=== PATIENT | male | born 1995 | race Caucasian/White ===

== ENCOUNTER 2020-11-07 17:39 | Emergency (ER) | payer BC ==
[2020-11-07] MEDS ORDERED: Sodium Chloride 0.9% 1000 ML 1,000 ML IV STA (17:56)
[2020-11-07 18:16] LABS: Absolute Neutrophil Ct (ANC) 4.93 (1.4-6.9); BASOPHIL % 0.4 % (0.0-0.4); Basophil (Absolute #) 0.03 (0-0.4); Eosinophil % 2.3 % (0.00-5.0); Eosinophil (Absolute #) 0.19 (0-0.5); Hematocrit 44.6 % (42-50); Hemoglobin 14.7 gm/dl (12.5-18.0); Lymphocyte (Absolute #) 2.53 (1.0-4.6); Lymphocytes % 30.7 % (24.0-44.0); Mean Cell Volume 81.4 fl (78-100); Mean Corpuscular Hemoglobin 26.8 pg (26-32); Mean Platelet Volume 9.4 fl (7.5-11.0); Monocyte (Absolute #) 0.56 (0.0-1.3); Monocytes % 6.8 % (0.0-12.0); Neutrophil % 59.8 % (36.0-66.0); Platelet Count 284 K/mm3 (150-450); Red Blood Count 5.48 M/mm3 (4.1-5.6); Red Cell Distribution Width 13.6 % (11.5-14.0); White Blood Count 8.2 K/mm3 (4.0-10.5)
[2020-11-07] MEDS ORDERED: Sodium Chloride 0.9% 1000 ML 1,000 ML ONE (18:20)
[2020-11-07 18:37] LABS: ALBUMIN 4.5 g/dL (3.5-5.0); ALKALINE PHOSPHATASE 119 U/L (38-126); ANION GAP 13.3 MEQ/L (5-15); BLOOD UREA NITROGEN 19 mg/dL (9-20); CHLORIDE 104 mmol/L (98-107); Calcium 9.8 mg/dL (8.4-10.2); Carbon Dioxide 27 mmol/L (22-30); Creatinine 1 1.04 mg/dL (0.66-1.25); EST GLOMERULAR FILTRATION RATE > 60.0 ML/MIN; Glucose 90 mg/dL (74-106); Potassium 4.3 mmol/L (3.5-5.1); SGOT/AST 42 U/L (17-59); SGPT/ALT 41 U/L (0-50); SODIUM 139 mmol/L (137-145); Total Protein 7.3 g/dL (6.3-8.2)
[2020-11-07 19:44] VITALS: O2SAT 97
--- NOTE | 2020-11-07 20:00 | ERPHSYRPT ---
- History of Present Illness Time Seen by Provider: 11/07/20 17:50 Source: patient Exam Limitations: no limitations Patient Subjective Stated Complaint: sent from Dr Egan office for elevated D dimer, need for CTA per PCP and chest pain since Wednesday Triage Nursing Assessment: pt to ED sent from Dr Egan office for elevated D dimer, need for CTA per PCP and chest pain since Wednesday. rates 2/10 pain now in center of chest. seen in [facility] ED Wednesday for same and dx with musclular pain. heart sounds clear. lungs clear and equal bilat. A&Ox3. ambualtory with no assist Physician History: Patient is a 25-year-old male presents to our ED as a referral from his primary care doctor for a CTA of his chest. Patient had a positive D-dimer on outpatient laboratory work-up. Patient sent here to rule out PE. Patient's chest pain started on Wednesday 4 days ago. Pain described as an ache, sudden onset intermittent muscle spasm sensation that is localized to his left upper chest. RN documents pain was substernal in the center of his chest however patient points to his left upper chest instead. No trauma. No fever. No nausea vomiting or diaphoresis. Pain rated 2 out of 10. Patient states he went to [facility] 2 days ago for the same. Patient was diagnosed with musculoskeletal chest pain. Patient voices no other complaints concerns at this time. Timing/Duration: day(s) (3 days ago.) Severity: mild Modifying Factors: Improves With: nothing Associated Symptoms: denies symptoms Allergies/Adverse Reactions: No Known Drug Allergies Allergy (Unverified 11/07/20 18:02) Home Medications: Buspirone HCl [Buspar] 10 mg PO DAILY 11/07/20 [History] Paroxetine HCl 20 mg [Paxil 20 MG] 20 mg PO DAILY 11/07/20 [History] Hx Tetanus, Diphtheria Vaccination/Date Given: Yes Hx Influenza Vaccination/Date Given: Yes Hx Pneumococcal Vaccination/Date Given: No Immunizations Up to Date: Yes Travel Risk - International Travel Have you traveled outside of the country in past 3 weeks: No - Coronavirus Screening Are you exhibiting any of the following symptoms?: No Close contact with a COVID-19 positive Pt in past 14-21 Days: No - Vaccine Status Have you recieved a Covid-19 vaccination: No - Review of Systems Constitutional: No Symptoms, No Fever, No Chills Eyes: No Symptoms Ears, Nose, & Throat: No Symptoms Respiratory: No Symptoms, No Cough, No Dyspnea Cardiac: No Symptoms, No Chest Pain, No Edema, No Syncope Abdominal/Gastrointestinal: No Symptoms, No Abdominal Pain, No Nausea, No Vomiting, No Diarrhea Genitourinary Symptoms: No Symptoms, No Dysuria Musculoskeletal: No Symptoms, No Back Pain, No Neck Pain Skin: No Symptoms, No Rash Neurological: No Symptoms, No Dizziness, No Focal Weakness, No Sensory Changes Psychological: No Symptoms Endocrine: No Symptoms Hematologic/Lymphatic: No Symptoms Immunological/Allergic: No Symptoms All Other Systems: Reviewed and Negative - Past Medical History Pertinent Past Medical History: Yes Psycho-Social History: Anxiety - Past Surgical History Past Surgical History: Yes Musculoskeletal: Orthopedic Surgery Other Surgical History: R wrist - Social History Smoking Status: Former smoker Exposure to second hand smoke: No Drug Use: none Patient Lives Alone: No - Nursing Vital Signs Nursing Vital Signs: Initial Vital Signs Pulse Rate 85 11/07/20 17:40 Respiratory Rate 25 H 11/07/20 17:40 Blood Pressure 156/95 11/07/20 17:40 O2 Sat by Pulse Oximetry 98 11/07/20 17:40 Pain Scale Pain Intensity 2 - Physical Exam General Appearance: no apparent distress, alert Eye Exam: PERRL/EOMI, eyes nml inspection Ears, Nose, Throat Exam: normal ENT inspection, TMs normal, pharynx normal, moist mucous membranes Neck Exam: normal inspection, non-tender, supple, full range of motion Respiratory Exam: normal breath sounds, lungs clear, No respiratory distress Cardiovascular Exam: regular rate/rhythm, normal heart sounds, normal peripheral pulses Gastrointestinal/Abdomen Exam: soft, normal bowel sounds, No tenderness, No mass Back Exam: normal inspection, normal range of motion, No CVA tenderness, No vertebral tenderness Extremity Exam: normal inspection, normal range of motion, pelvis stable Neurologic Exam: alert, oriented x 3, cooperative, normal mood/affect, nml cerebellar function, nml station & gait, sensation nml, No motor deficits Skin Exam: normal color, warm, dry, No rash Lymphatic Exam: No adenopathy SpO2 Interpretation: normal SpO2: 97 O2 Delivery: Room Air - Course Nursing assessment & vital signs reviewed: Yes EKG Interpreted by Me: RATE (85), Sinus Rhythm, NORMAL AXIS, NORMAL INTERVALS Ordered Tests: Active Orders 24 hr Category Date Time Status Animal Anatomy Teacher STAT Care 11/07/20 17:56 Active EKG-ER Only STAT Care 11/07/20 17:56 Active IV Insertion STAT Care 11/07/20 17:56 Active Pulse Oximetry (ED) STAT Care 11/07/20 17:56 Active CHEST WITH CONTRAST [CT] Stat Exams 11/07/20 17:56 Taken CBC W DIFF Stat Lab 11/07/20 18:05 Completed CMP Stat Lab 11/07/20 18:05 Completed TROPONIN Q3H Lab 11/07/20 18:05 Completed TROPONIN Q3H Lab 11/07/20 21:00 Ordered TROPONIN Q3H Lab 11/08/20 00:00 Ordered TROPONIN Q3H Lab 11/08/20 03:00 Ordered TROPONIN Q3H Lab 11/08/20 06:00 Ordered Medication Summary Discontinued Medications Generic Name Dose Route Start Last Admin Trade Name Freq PRN Reason Stop Dose Admin Sodium Chloride 1,000 mls @ 999 mls/hr 11/07/20 17:56 11/07/20 18:22 Sodium Chloride 0.9% 1000 Ml IV 11/07/20 18:56 999 mls/hr .Q1H1M STA Administration Sodium Chloride Confirm 11/07/20 18:20 Sodium Chloride 0.9% 1000 Ml Administered 11/07/20 18:21 Dose 1,000 mls @ ud .ROUTE .STK-MED ONE Lab/Rad Data: Laboratory Result Diagrams 11/07/20 18:05 11/07/20 18:05 Laboratory Results 11/07/20 11/07/20 11/07/20 Range/Units 18:05 18:05 18:05 WBC 8.2 (4.0-10.5) K/mm3 RBC 5.48 (4.1-5.6) M/mm3 Hgb 14.7 (12.5-18.0) gm/dl Hct 44.6 (42-50) % MCV 81.4 (78-100) fl MCH 26.8 (26-32) pg MCHC 33.0 (32-36) g/dl RDW 13.6 (11.5-14.0) % Plt Count 284 (150-450) K/mm3 MPV 9.4 (7.5-11.0) fl Gran % 59.8 (36.0-66.0) % Eos # (Auto) 0.19 (0-0.5) Absolute Lymphs (auto) 2.53 (1.0-4.6) Absolute Monos (auto) 0.56 (0.0-1.3) Lymphocytes % 30.7 (24.0-44.0) % Monocytes % 6.8 (0.0-12.0) % Eosinophils % 2.3 (0.00-5.0) % Basophils % 0.4 (0.0-0.4) % Absolute Granulocytes 4.93 (1.4-6.9) Basophils # 0.03 (0-0.4) Sodium 139 (137-145) mmol/L Potassium 4.3 (3.5-5.1) mmol/L Chloride 104 (98-107) mmol/L Carbon Dioxide 27 (22-30) mmol/L Anion Gap 13.3 (5-15) MEQ/L BUN 19 (9-20) mg/dL Creatinine 1.04 (0.66-1.25) mg/dL Estimated GFR > 60.0 ML/MIN Glucose 90 (74-106) mg/dL Calcium 9.8 (8.4-10.2) mg/dL Total Bilirubin 0.60 (0.2-1.3) mg/dL AST 42 (17-59) U/L ALT 41 (0-50) U/L Alkaline Phosphatase 119 (38-126) U/L Troponin I < 0.012 (0.000-0.034) ng/mL Serum Total Protein 7.3 (6.3-8.2) g/dL Albumin 4.5 (3.5-5.0) g/dL - Progress Progress: improved Progress Note: Patient reassessed. He is currently pain-free. CT a chest negative for PE. No active chest pain at this time. EKG shows normal sinus rhythm. Troponin negative. Will discharge at this time. Patient follow-up with Dr. Yu within 48 hours for reassessment. 11/07/20 20:09 Discussed with : Caryn (Aimee updated on findings. Aimee aware that CTA chest negative for PE.) Will see patient in: office Counseled pt/family regarding: lab results, diagnosis, need for follow-up, rad results - Departure Departure Disposition: Home Clinical Impression: Musculoskeletal chest pain Condition: Stable Critical Care Time: No Referrals: NELSY YU [Primary Care Provider] - Additional Instructions: Discharge/Care Plan KATHERIN ROJO was seen on 11/07/20 in the Emergency Room. The patient was counseled regarding Diagnosis,Lab results, Imaging studies, need for follow up and when to return to the Emergency Room. Prescriptions given: Discharge Note I have spoken with the patient and/or caregivers. I have explained the patient's condition, diagnosis and treatment plan based on the information available to me at this time. I have answered the patient's and/or caregiver's questions and addressed any concerns. The patient and/or caregivers have as good understanding of the patient's diagnosis, condition and treatment plan as can be expected at this point. The vital signs have been stable. The patient's condition is stable and appropriate for discharge from the emergency department. The patient will pursue further outpatient evaluation with the primary care physician or other designated or consulting physician as outlined in the discharge instructions. The patient and/or caregivers are agreeable to this plan of care and follow-up instructions have been explained in detail. The patient and/or caregivers have received these instruction. The patient/and or caregivers are aware that any significant change in condition or worsening of symptoms should prompt an immediate return to this or the closest emergency department or call 911.
[2020-11-07 20:08] VITALS: BP 161/98; PULSE 86
--- NOTE | 2020-11-09 13:05 | XRAY ---
Exam: CT of the chest with IV contrast 11/07/2020. CTDI: 18.57 mGy Comparison: None. Indication: 25-year-old male with left-sided chest pain that comes and goes for 4 days; elevated d-dimer of 633. Technique: Post-IV contrast axial images were obtained through the chest using a PE protocol during automated injection of 100 ML's of Isovue 370 IV contrast material. Reconstructed coronal and sagittal images were created and reviewed. Findings: The pulmonary arteries are well opacified revealing no filling defects to suggest clot/emboli. There is no evidence of thoracic aortic aneurysm or aortic dissection. The heart size is normal without pericardial effusion. No abnormal mediastinal or perihilar lymphadenopathy is seen. A tiny calcified granuloma is seen at the lateral margin of the left hilum. There is also a small calcified granuloma within the peripheral left upper lung field. The remainder of the lung shelby appears clear. No infiltrates, pneumothorax, pleural effusion, or suspicious soft tissue lung nodularity is seen. There is no evidence of interstitial lung disease. The visualized upper abdomen appears unremarkable. The adrenal glands appear normal. The skeleton reveals no acute fracture or bone destruction. I note some small Schmorl's nodes within the central vertebral endplates of the mid and lower thoracic spine. Impression: 1. No evidence of acute pulmonary embolism is seen. 2. No other acute cardiopulmonary process is seen.
== END 2020-11-07 20:16 | disposition home or self-care (01) ==
LOC: ED 17:39
DX: R07.89 Other chest pain (principal); Z79.899 Other long term (current) drug therapy
CPT/HCPCS: 36000; 36415; 71260; 80053; 84484; 85025; 93005; 93041; 94760; 96360; 99284

== ENCOUNTER → 2021-04-24 | Day surgery (SDC) | payer BC ==
--- NOTE | 2021-04-21 14:07 | HP ---
DATE OF SURGERY: 04/24/2021 HISTORY OF PRESENT ILLNESS: The patient presents with complaints of umbilical hernia. The patient had small umbilical hernia on physical exam. It has been symptomatic for him. He wishes to have this fixed. PAST MEDICAL HISTORY: None. PAST SURGICAL HISTORY: None. ALLERGIES: NKDA. MEDICATIONS: None reported. FAMILY HISTORY: None reported. SOCIAL HISTORY: None reported. REVIEW OF SYSTEMS: CONSTITUTIONAL: Denies fever or chills. CHEST: Denies shortness of breath. CVS: Denies chest pain. ABDOMEN: Reports umbilical hernia pain. Denies nausea, vomiting, diarrhea, constipation or rectal bleeding. PHYSICAL EXAMINATION: GENERAL: No acute distress. CHEST: Nonlabored. No shortness of breath. CVS: Regular rate and rhythm. ABDOMEN: Soft, tender at umbilical hernia, small defect. IMPRESSION: Symptomatic umbilical hernia. PLAN: Umbilical hernia repair with possible mesh with Dr. Fausto Prasad. As dictated by Latricia Pinzon NP.
[~2021-04-24] MED LIST: BREVIBLOC 100 MG/10 ML IV ONE; BRIDION 200MG/2ML IV ONE; CEFAZOLIN 2 GM-D5W BAG** 2 GM/50 ML ML IV SCH; DIPRIVAN 200 MG/20 ML IV ONE; Decadron 4 MG INJ ONE; Hydromorphone 1 mg/ml Injection ONE; Lactated Ringers 1,000 ML IV ONE; Lactated Ringers 1,000 ML IV SCH; MORPHINE SULFATE 10 MG/ML ONE; Marcaine 0.5%/Epinephrine 10 ML ONE; SUBLIMAZE 100 MCG/2 ML ONE; Sensorcaine 0.25% 10 ML ONE; TORAdol 30 mg Injection ONE; TRANDATE 100MG/20 ML MDV IV ONE; Versed 2 MG/2 ML Injection ONE; Xylocaine-Mpf 2% 5 Ml Vial ONE; Zemuron 100 MG/10 ML ONE; Zofran 4 MG/2 ML VIAL ONE
[2021-04-24 14:41] VITALS: O2SAT 95
[2021-04-24 14:55] VITALS: BP 136/93; PULSE 80
--- NOTE | 2021-04-25 07:43 | OP ---
SURGERY DATE/TIME: 04/24/2021 1216 PREOPERATIVE DIAGNOSIS: Symptomatic umbilical hernia. POSTOPERATIVE DIAGNOSIS: Symptomatic umbilical hernia. PROCEDURE: Umbilical herniorrhaphy. SURGEON: Fausto Prasad M.D. ANESTHESIA: General. COMPLICATIONS: None. CONDITION: Stable. INDICATION: The patient with symptomatic umbilical hernia. DESCRIPTION OF PROCEDURE: Taken to surgery. Marked preoperatively. General anesthetic. Routine prep and drape. Time out performed. Infraumbilical incision. Defect noted at the umbilicus. It was 6 mm. It was loosened up. It was repaired with figure-of-8 suture #0 Prolene. It was then covered over with 0 figure-of-8 PDS. Skin closed with 4-0 Vicryl and glue. The patient tolerated the procedure satisfactorily.
== END ==
LOC: SDC 09:55
PROVIDERS: ATTEND Surgery
DX: K42.9 Umbilical hernia without obstruction or gangrene (principal)
CPT/HCPCS: J0690; J1100; J1170; J1885; J2250; J2270; J2405; J2704; J3010; L0625

== ENCOUNTER 2022-07-04 20:22 | Emergency (ER) | payer BC ==
[2022-07-04 20:53] VITALS: O2SAT 99
--- NOTE | 2022-07-04 21:07 | ERPHSYRPT ---
- History of Present Illness Time Seen by Provider: 07/04/22 21:03 Source: patient Exam Limitations: no limitations Patient Subjective Stated Complaint: pt states his had got smashed between some pipes while he was working on them. Triage Nursing Assessment: pt alert and oriented, answers questions approp. pt ambulates into room with steady gait noted. respirations nonlabored. skin warm and dry. bruising and swelling noted to top of rt hand. pt reports tenderness with light palpation. cap refill and radial pulse wnl. Physician History: pt states his had got smashed between some pipes while he was working on them. Occurred: just prior to arrival Method of Injury: direct blow Quality: constant Severity of Pain-Max: mild Severity of Pain-Current: mild Extremities Pain Location: hand: right Modifying Factors: Improves With: cold therapy Associated Symptoms: none Allergies/Adverse Reactions: No Known Drug Allergies Allergy (Verified 07/04/22 20:53) Home Medications: Escitalopram Oxalate [Lexapro] 10 mg PO DAILY 04/18/21 [History] Hx Tetanus, Diphtheria Vaccination/Date Given: Yes Hx Influenza Vaccination/Date Given: Yes Hx Pneumococcal Vaccination/Date Given: No Immunizations Up to Date: Yes Travel Risk - International Travel Have you traveled outside of the country in past 3 weeks: No - Coronavirus Screening Are you exhibiting any of the following symptoms?: No Close contact with a COVID-19 positive Pt in past 14-21 Days: No - Vaccine Status Have you recieved a Covid-19 vaccination: No - Review of Systems Constitutional: No Symptoms Eyes: No Symptoms Ears, Nose, & Throat: No Symptoms Respiratory: No Symptoms Cardiac: No Symptoms Abdominal/Gastrointestinal: No Symptoms Genitourinary Symptoms: No Symptoms Musculoskeletal: Joint Swelling (right hand) Skin: No Symptoms Neurological: No Symptoms Psychological: No Symptoms Endocrine: No Symptoms Hematologic/Lymphatic: No Symptoms - Past Medical History Pertinent Past Medical History: Yes Neurological History: No Pertinent History ENT History: No Pertinent History Cardiac History: Hypertension Respiratory History: No Pertinent History Endocrine Medical History: No Pertinent History Musculoskeletal History: No Pertinent History GI Medical History: Hernia History: No Pertinent History Psycho-Social History: Anxiety, Depression Male Reproductive Disorders: No Pertinent History - Past Surgical History Past Surgical History: Yes Neuro Surgical History: No Pertinent History Cardiac: No Pertinent History Respiratory: No Pertinent History Gastrointestinal: Hernia Repair Genitourinary: No Pertinent History Musculoskeletal: Orthopedic Surgery Other Surgical History: R wrist - Social History Smoking Status: Former smoker Exposure to second hand smoke: No Drug Use: none Patient Lives Alone: No - Nursing Vital Signs Nursing Vital Signs: Initial Vital Signs Temperature 98.3 F 07/04/22 20:40 Pulse Rate 75 07/04/22 20:40 Respiratory Rate 16 07/04/22 20:40 Blood Pressure 159/118 07/04/22 20:40 O2 Sat by Pulse Oximetry 99 07/04/22 20:40 Pain Scale Pain Intensity 5 - Physical Exam General Appearance: no apparent distress Eyes, Ears, Nose, Throat Exam: normal ENT inspection Neck Exam: normal inspection Cardiovascular/Respiratory Exam: chest non-tender Abdominal Exam: non-tender Shoulder Exam: normal inspection Elbow/Forearm Exam: normal inspection Wrist Exam: normal inspection Hand Exam: soft tissue tenderness, swelling (right hand) SpO2: 99 - Course Nursing assessment & vital signs reviewed: Yes - Radiology Exams Hand X-ray Interpretation: Reviewed by me, Negative, No Fracture, No Subluxation Ordered Tests: Active Orders 24 hr Category Date Time Status HAND (MINIMUM 3 VIEWS) Stat Exams 07/04/22 20:44 Taken - Progress Progress: improved, pain not gone completely Counseled pt/family regarding: diagnosis, rad results Medical Desision Making - Discussion of managment Agreed on:: Treatment plan, need for follow-up - Departure Departure Disposition: Home Clinical Impression: Injury of hand, right, superficial Qualifiers: Encounter type: initial encounter Qualified Code(s): S60.921A - Unspecified superficial injury of right hand, initial encounter Condition: Stable Critical Care Time: No Referrals: NELSY ZAFAR [Primary Care Provider] - Follow up/PCP as directed Instructions: Hand Pain (DC) Additional Instructions: Discharge/Care Plan KATHERIN ROJO was seen on 07/04/22 in the Emergency Room. The patient was counseled regarding Diagnosis,Lab results, Imaging studies, need for follow up and when to return to the Emergency Room. Prescriptions given: Discharge Note I have spoken with the patient and/or caregivers. I have explained the patient's condition, diagnosis and treatment plan based on the information available to me at this time. I have answered the patient's and/or caregiver's questions and addressed any concerns. The patient and/or caregivers have as good understanding of the patient's diagnosis, condition and treatment plan as can be expected at this point. The vital signs have been stable. The patient's condition is stable and appropriate for discharge from the emergency department. The patient will pursue further outpatient evaluation with the primary care physician or other designated or consulting physician as outlined in the discharge instructions. The patient and/or caregivers are agreeable to this plan of care and follow-up instructions have been explained in detail. The patient and/or caregivers have received these instruction. The patient/and or caregivers are aware that any significant change in condition or worsening of symptoms should prompt an immediate return to this or the closest emergency department or call 911. KATHERIN ROJO was seen on 07/04/22 n the Emergency Room. At that time you were treated for an emergent condition, during your visit Laboratory, Radiology and/or other procedures may have been ordered. It is very important that you follow-up with your Primary Care Physician NELSY ZAFAR within the next 24-48 hours to review your Emergency Room visit and the final results of testing that was ordered. Some test results such as Urine Cultures, Blood Cultures, and other cultures if ordered will not be finalized for 24-48 hours. If you do not have a Primary Care Provider please call the medical records department at [phone] ext [phone] to obtain a copy of your results or you may sign into our patient portal to obtain these results by visiting us @ [email or web address] and completing the following steps: 1. Click on the Patient Portal link 2. Click the Patient Self Enrollment Link to complete the enrollment form and entering your 3. Once the enrollment form is completed you will receive an email with a temporary ID and password at the email address you provided. 4. Next choose a user name and password. Your user name must be at least 4 characters long and your password must be at least 4 characters long. 5. Choose a security question from the list and provide your answer to the question. If you already have signed into the Health Portal you may access your Health Care Information 07/12 by the following steps: 1. Login to our website @ [email or web address] 2. Enter your original user name and password. FAQS The [facility] Health Portal is an online tool that contains your Lab Results, Radiology Reports, Visit History, Discharge Instructions and Health Summary Lab and Radiology Results will not be available for 72 hours on the portal. The Portal is a secure site, passwords are encryted and URLs are re-written so they cannot be copied and pasted. You and authorized family members are the only ones who can access your Portal. Also there is a timeout feature that protects your information if you leave the Portal page open. If you have technical difficulty please use the Contact Us link on the page this will allow you to submit any questions you have regarding the Portal or you may contact the Medical Record Department at [phone] ext [phone].
[2022-07-04 21:23] VITALS: BP 138/99; PULSE 64
--- NOTE | 2022-07-05 08:44 | XRAY ---
Indication: Crush injury. Comparison: None 3 view right hand demonstrates mild posterior soft tissue swelling and old 5th metacarpal fracture. No other bony, articular, or soft tissue abnormalities.
== END 2022-07-04 21:24 | disposition home or self-care (01) ==
LOC: ED 20:22
DX: S67.21XA Crushing injury of right hand, initial encounter (principal); W23.0XXA Caught, crushed, jammed, or pinched between moving objects, initial encounter; I10 Essential (primary) hypertension; Z79.899 Other long term (current) drug therapy; Z28.310 Unvaccinated for COVID-19
CPT/HCPCS: 73130; 99282; A4570